=== PATIENT | male | born 1950 | race Caucasian/White ===

== ENCOUNTER 2022-07-10 08:59 | Outpatient (CLI) | payer MEDICARE, BC, SELFPAY | END 2022-07-10 09:00 | disposition home or self-care (01) | PROVIDERS: PCP Internal Medicine; Visit Provider Internal Medicine | DX: Z00.00 Encounter for general adult medical examination without abnormal findings (principal); Z13.6 Encounter for screening for cardiovascular disorders; Z13.1 Encounter for screening for diabetes mellitus | CPT/HCPCS: 80061; 82947 ==

== ENCOUNTER 2022-07-17 09:02 | Outpatient (CLI) | payer MEDICARE, BC, SELFPAY ==
--- NOTE | 2022-07-17 09:15 | CRLHL7_ITS ---
For Patients: As a result of the Cures Act, medical imaging exams and procedure reports are released immediately into your electronic medical record. You may view this report before your referring provider. If you have questions, please contact your health care provider. Examination: US abdominal aorta Indication: Abdominal aortic aneurysm screening. Technique: Block scale and color Doppler images of the aorta and common iliac arteries are obtained. Comparison: None Findings: Proximal aorta: 3.0 x 2.9 cm Mid aorta: 2.2 x 2.3 cm Distal aorta: 1.9 x 2.0 cm Right common iliac artery: 1.1 x 1.2 cm Left common iliac artery: 1.1 x 1.1 cm Recommended imaging interval for ectatic aorta: 3.0-3.4 cm: 3 years Impression: Ectatic proximal aorta. Dictated by David Vee MD @ 07/17/2022 9:41:54 AM (Electronically Signed)
== END 2022-07-17 09:03 | disposition home or self-care (01) ==
PROVIDERS: PCP Internal Medicine; Visit Provider Internal Medicine
DX: Z13.6 Encounter for screening for cardiovascular disorders (principal); F17.200 Nicotine dependence, unspecified, uncomplicated
CPT/HCPCS: 76775

== ENCOUNTER 2022-11-09 15:15 | Outpatient (RCR) | payer MEDICARE, BC, SELFPAY ==
--- NOTE | 2022-10-30 09:20 | PT.OPEX ---
PT [facility] Outpatient Eval PT [facility] Outpatient Eval Start: 10/30/22 07:22 Freq: Status: Active Protocol: Document 10/30/22 07:33 ANNA (Rec: 10/30/22 09:12 ANNA [id number]) E-signed By Smith Moore PT Physical Therapy Outpatient Evaluation Insurance Information Insurance Name Medicare B Medical Diagnosis Bilateral hip bursitis Treating Diagnosis Bilateral gluteal medius weakness Bilateral hip flexor tightness Referring MD Ray Subjective Subjective Pt. reports onset of bilateral lateral/anterior hip pain symptoms without noted injury about a month ago with no prior symptoms. He states that steps and going sit to stand after sitting for awhile are difficult with some difficulty walking as well. He has trouble sleeping on his sides due to pain. PMH includes a left shoulder cuff repair and a stint placement due to heart problems. He is retired and active with golfing etc. Pain Comments 5 average Date of Last Physician Visit 10/16/22 Current Work Status Retired Preferred Name [facility] Objective Range of Motion Bilat. hip ROM is WNL without pain Strength Moderate bilateral hip abduction weakness Mild bilateral hip extension weakness Swelling none noted Palpation pain bilateral gluteus medius and iliopsoas Balance & Gait Mild Trendelenburg gait due to gluteal weakness Functional Test Performed & Score LEFS = 48/80: 60% Assessment Assessment/Impression Objectively, pt. demonstrates; mild Trendelenburg gait due to gluteus medius weakness; functional bilat. hip ROM for age without pain provocation; gluteal and hip flexor tightness; weakness of hip abduction and extension bilaterally; pain and mild weakness with hip flexion; and general core deconditioning. He would benefit from skilled therapy working on progressive flexibility and gluteal strengthening. Primary Functional Limitations sit to stand steps walking sleeping on sides Plan of Care Rehabilitation Potential Excellent Physical Therapy Goals 1. Pt. will be independent with HEP for self maintenance in 8 weeks. 2. Pt. will demonstrate improved hip mobility and core strength in 8 weeks. 3. Pt. will demonstrate improved gluteal strength and gait pattern in 8 weeks. 4. Pt. will be able to perform all ADL's without pain again in 8-12 weeks. Coordination/Communication With Referral Source Treatment Plan/Direct Interventions Joint Mobilization,Manual Therapy,Self-Care/Home Management,Therapeutic Exercises Frequency/Duration 4-6 visits over weeks. Patient Will Be Discharged From Therapy Independent w/HEP, Independently Progressing Evaluation Billing Complexity Low Certification Information Initial Certification Date 10/30/22 Ending Certification Date 01/23/23 Provider Signature Shows Agreement With POC & Medical Necessity Physician Signature & Date Requested Please Sign/Date Here Physician Comment/Change : Physician NPI Number #
== END 2023-02-16 09:18 | disposition home or self-care (01) ==
PROVIDERS: PCP Internal Medicine; Visit Provider Orthopaedic Surgery
DX: M70.71 Other bursitis of hip, right hip (principal); M70.72 Other bursitis of hip, left hip; M62.81 Muscle weakness (generalized); Z51.89 Encounter for other specified aftercare
CPT/HCPCS: 97110; 97161

== ENCOUNTER 2022-12-21 07:05 | Outpatient (CLI) | payer MEDICARE, BC, SELFPAY ==
--- NOTE | 2022-12-21 07:15 | MR_ITS ---
[address] [address] Phone:?[phone] Fax:?[phone] Referring Physician Information: Bob Ray M.D. [id number] [facility] [address] Phone:?[phone] Fax:?[phone] Patient:Jos Vergara D.O.B:?1950 Sex:?Male Phone:?[phone] [facility] MRN:?[id number] Exam Date:?12/21/2022 EXAM: MRI RIGHT THIGH CLINICAL INFORMATION: The patient is a 72-year-old with right distal thigh pain. Evaluate quadriceps muscle. Evaluate fascia. Evaluate for strain. TECHNICAL INFORMATION: Imaging was produced on a high-field, 1.5 Rox MR scanner. Coronal T1, T2, and STIR imaging of the thighs was performed in addition to axial T1 and axial fat-suppressed proton-density imaging. Sagittal proton-density and sagittal STIR imaging of the right thigh was also performed. INTERPRETATION: A marker was placed at the site of the patient's symptoms along the anterior and distal aspect of the right thigh. The marker directly overlies the distal rectus femoris myotendinous junction and proximal quadriceps tendon. Mild tendinosis is thought to be present, however no evidence for well-defined tearing is seen. No injuries to the distal myotendinous junction regions of the rectus femoris, vastus medialis, vastus lateralis, or vastus medialis can be seen. No other musculotendinous abnormalities of the right thigh are present. The right adductor compartment appears normal. No injuries to the right hamstrings can be seen. The left thigh musculature is within normal limits. No bony abnormalities of the right femur are present. There is no evidence for fracture, stress injury, or destructive bony lesion. The left femur is within normal limits. No definite neurovascular abnormalities of either thigh can be seen. No well-defined areas of abnormal fluid collection are present. CONCLUSION: 1. Mild tendinosis of the right quadriceps tendon. No evidence for well-defined myotendinous strain can be seen. 2. No other musculotendinous abnormalities of either thigh can be seen. 3. No bony abnormalities of the right or left femur are present. 4. No neurovascular abnormalities are present. [facility] Electronically signed on 12/22/2022 7:41:00 AM by Christian Jacobo M.D.
== END 2022-12-21 07:06 | disposition home or self-care (01) ==
LOC: MRI 07:06
PROVIDERS: PCP Internal Medicine; Visit Provider Orthopaedic Surgery
DX: M79.651 Pain in right thigh (principal); S76.111A Strain of right quadriceps muscle, fascia and tendon, initial encounter
CPT/HCPCS: 73718

== ENCOUNTER 2024-05-06 07:38 | Outpatient (CLI) | payer MEDICARE, BC, SELFPAY ==
--- NOTE | 2024-05-06 08:00 | CRLHL7_ITS ---
For Patients: As a result of the Century Cures Act, medical imaging exams and procedure reports are released immediately into your electronic medical record. You may view this report before your referring provider. If you have questions, please contact your health care provider. INDICATION: Lung cancer screening. History of smoking. High risk patient with greater than 30 pack-year smoking history. TECHNIQUE: Low-dose lung cancer screening non-contrast CT chest. Dose reduction techniques were used. COMPARISON: 4.3 FINDINGS: NODULES: Stable calcified granuloma left upper lobe measures 4.5 millimeters. Stable nodule at the left lung apex measures 3.8 millimeters. Tiny calcified nodule right lower lobe measuring 2 millimeters. LUNGS AND PLEURA: Emphysema. Mild dependent fibrosis. No pleural effusion. No infiltrate. MEDIASTINUM: No enlarged lymph nodes. Calcified left hilar lymph nodes. CORONARY ARTERY CALCIFICATION: Present. LIMITED UPPER ABDOMEN: Calcification in the spleen. Atherosclerotic changes. MUSCULOSKELETAL: No fracture. Discogenic spurring. Stable sub cm cyst within the right hepatic lobe. IMPRESSION: Bilateral nodules measuring up to 4.5 millimeters. LUNG-RADS CATEGORY: 2: Benign. RADIOLOGIST RECOMMENDATION: Continue annual screening with low-dose CT chest in 12 months. Please note that all CT scans at this facility use dose modulation, iterative reconstruction, and/or weight-based dosing when appropriate to reduce radiation dose to as low as reasonably achievable. Dictated by David Vee MD @ 05/06/2024 12:06:42 PM (Electronically Signed)
== END 2024-05-06 07:39 | disposition home or self-care (01) ==
LOC: CT 07:40
PROVIDERS: PCP Internal Medicine; Visit Provider Internal Medicine
DX: Z12.2 Encounter for screening for malignant neoplasm of respiratory organs (principal); R91.8 Other nonspecific abnormal finding of lung field; Z87.891 Personal history of nicotine dependence
CPT/HCPCS: 71271